=== PATIENT | male | born 1955 | race Caucasian/White ===

== ENCOUNTER → 2016-03-30 | Outpatient (CLI) | payer BC ==
[~2016-03-30] MED LIST: /PANT40TA PO; ACET50TA PO; ALLO300T2 PO; CARA1TAB2 PO; CONRAY-43 43% 50ML VIAL (Q9960) As Ordered ONE; DOXA2TAB PO; FINA5TAB2 PO; GABA300C2 PO; ICAPCAP PO; LYRI75CA PO; MELO15TA3 PO; Magnesium; OLIV500C PO; ONE A DAY MENS PO; PERCOCET PO; PRAV40TA2 PO; REGL10TA6 PO; UNIS25TA2 PO; VITA500019 PO; [UNRECOGNIZED DRUG - CODE] PO; diltiazem PO
--- NOTE | 2016-03-30 09:40 | REP ---
MR arthrography right shoulder: with pre and post intra-articular gadolinium enhanced saline injected imaging: History: Right shoulder pain. History of surgery in 2011. History of injury in 2010. Limited range of motion. No comparison radiographs. Technique: The injection procedure is performed and dictated separately. Pre and post intra-articular gadolinium enhanced saline injected imaging is acquired. Imaging planes include axial, oblique coronal, oblique sagittal and ABER projection images. T1 T2-weighted scans are included with and without fat saturation. MRI findings: Pre injection MR imaging shows normal alignment of the glenohumeral and acromioclavicular joints. There is some subcortical cyst formation in the superolateral humeral head. There is inferolateral spurring of the acromion process. The distal clavicle has been resected and the acromioclavicular joint is postoperatively widened but normally aligned. There is magnetic field susceptibility artifact adjacent to the acromion process. There is a small pre injection joint effusion. There is diffuse swelling and increased signal intensity in the supraspinatus tendon on oblique coronal pre injection T1-weighted scans consistent with tendonitis tendinosis change. A small sliver of subacromial subdeltoid bursal fluid is seen. Post injection MR imaging shows good filling and enhancement of the right glenohumeral articulation. No loose body is appreciated. There is no evidence of rotator cuff tear on post injection T1-weighted oblique coronal scans. The superior labrum is very small and appears to have been resected. No anterior or posterior labral disruption is appreciated. No periarticular cyst or mass is observed. Biceps tendon is not well seen and appears to be attenuated. No infraspinatus or subscapularis disruption is seen. Impression: Postoperative changes at the AC joint, acromion process, and supraspinatus tendon. The superior labral cartilage appears to have been resected. There is early osteoarthritic spurring at the inferior margin of the glenoid. Tendonitis tendinosis changes are seen in the supraspinatus tendon. Biceps tendon is attenuated and not well seen. Signed by Jose Cruz Tineo MD 03/30/2016 10:19 A
--- NOTE | 2016-03-30 17:21 | REP ---
Procedure: Right shoulder arthrogram The procedure was performed under the direct supervision of Dr. Tineo. History: Right shoulder pain The benefits and risks including but not limited to pain, infection, bleeding and anaphylaxis were explained to the patient and informed consent was obtained. Technique: The right glenohumeral joint space was localized using fluoroscopic guidance. The skin was prepped and draped in a sterile fashion. 1% lidocaine was used as a local anesthetic. Using fluoroscopic guidance a 22 gauge spinal needle was inserted and advanced into the joint. 0.5 ml of Conray 43 was injected to verify placement. 11 ml of a solution containing 20 ml of sterile saline and 0.15 ml of ProHance was injected into the joint. The needle was removed and the patient was taken to MRI for postprocedural imaging. The the patient tolerated the procedure well and there were no immediate complications. 1 second of of fluoro time was utilized for this procedure. Reviewed by GALE Cisse 03/30/2016 01:45 PSigned by Jose Cruz Tineo MD 03/30/2016 05:12 P
== END ==
LOC: M RADPRO 07:19
PROVIDERS: ATTEND Orthopaedic Surgery
DX: M65.811 Other synovitis and tenosynovitis, right shoulder (principal); M19.011 Primary osteoarthritis, right shoulder; M75.81 Other shoulder lesions, right shoulder; Z98.890 Other specified postprocedural states
CPT/HCPCS: 23350; 73223; 77002; A9576; Q9960

== ENCOUNTER 2018-05-17 05:55 | Day surgery (SDC) | payer OTHER ==
[~2018-05-17] VITALS: Ht 193 cm; Wt 125.2 kg
[~2018-05-17 05:55] MED LIST changes: +ALLO10TA PO; +ASPI81CH32 PO; +CELE1CAP4 PO; -CONRAY-43 43% 50ML VIAL (Q9960) As Ordered ONE; +DOXA1TAB41 PO; +HYDR-3713 PO; +OMEP40CA2 PO; +VITA1CAP2 PO
[2018-05-17] MEDS ORDERED: ceFAZolin 2 GM/D5W 50 ML IV BAG (J0690 PER 500MG) As Ordered ONE (06:33)
[2018-05-17] MEDS ORDERED: MIDAZOLAM INJ 2 MG/2 ML VIAL (J2250) As Ordered ONE ×2 (06:40→07:08)
[2018-05-17] MEDS ORDERED: fentaNYL 100 MCG/2 ML INJECTION (J3010) As Ordered ONE ×3 (06:40→11:44)
[2018-05-17] MEDS ORDERED: LIDOCAINE 2% INJ 100 MG/5 ML SDV (FOR ANES.) As Ordered ONE (07:06)
[2018-05-17] MEDS ORDERED: ONDANSETRON 4MG/2ML VIAL (J2405) As Ordered ONE ×2 (07:06→11:44)
[2018-05-17] MEDS ORDERED: dexameTHASONE 4 MG/ML 1ML VIAL (J1100) As Ordered ONE (07:06)
[2018-05-17] MEDS ORDERED: PROPOFOL 200 MG/20 ML VIAL As Ordered ONE (07:06)
[2018-05-17] MEDS ORDERED: ROCURONIUM BROMIDE 50 MG/5 ML VIAL As Ordered ONE ×2 (07:53→08:01)
[2018-05-17] MEDS ORDERED: HYDROmorphone HCL 2 MG/ML 1ML VIAL (J1170) As Ordered ONE (08:00)
[2018-05-17] MEDS ORDERED: ePHEDrine SULFATE 25 MG/5 ML(5MG/ML) SYRINGE As Ordered ONE (08:32)
[2018-05-17] MEDS ORDERED: SUGAMMADEX SODIUM 500 MG/5 ML VIAL (BRIDION) As Ordered ONE (08:50)
[2018-05-17] MEDS ORDERED: ACETAMINOPHEN 1000MG 100ML IV BTL (OFIRMEV) (J0131 PER 10MG) As Ordered ONE (10:16)
[2018-05-17] MEDS ORDERED: BUPIVACAINE HCL 0.25% 30 ML VIAL As Ordered ONE (10:37)
[2018-05-17] MEDS ORDERED: oxyCODONE 5MG TAB As Ordered ONE (11:44)
[2018-05-17] MEDS ORDERED: METOCLOPRAMIDE INJ 10MG/2ML VIAL (J2765) IV PRN (11:45)
[2018-05-17] MEDS ORDERED: LR 1,000 ML IV SCH ×2 (11:45→12:00)
[2018-05-17] MEDS ORDERED: ONDANSETRON 4MG/2ML VIAL (J2405) IV PRN (11:45)
[2018-05-17] MEDS ORDERED: PERCOCET 5MG/325MG TAB PO PRN (11:45)
[2018-05-17] MEDS: fentaNYL 100 MCG/2 ML INJECTION (J3010) IV PRN ×4 (11:53→12:15)
[2018-05-17] MEDS ORDERED: oxyCODONE 5MG TAB PO PRN ×2 (12:15)
--- NOTE | 2018-05-17 12:36 | REP ---
LEFT FOOT, THREE VIEWS: HISTORY: Postop. A plaster cast is present obscuring detail. The patient is status post arthrodesis of the talonavicular joint space. Metal hardware is present. There is no acute fracture or dislocation. The patient is status post arthrodesis of the talonavicular joint space. There is anatomic alignment. Electronically Signed by Gareth Zhang MD 05/17/2018 12:37 P
--- NOTE | 2018-05-17 12:39 | REP ---
LEFT ANKLE, THREE VIEWS: HISTORY: Postop. A plaster cast is present obscuring detail. The patient is status post arthrodesis of the talonavicular joint space. Metal hardware is present. There is no acute fracture or dislocation. The joint space is normal in appearance. IMPRESSION: The patient is status post arthrodesis of the talonavicular joint space. There is anatomic alignment. Electronically Signed by Gareth Zhang MD 05/17/2018 12:41 P
--- NOTE | 2018-05-17 15:00 | REP ---
FLUOROSCOPIC GUIDANCE FOR ANKLE SURGERY: 05/17/2018. Clinical history: Ankle arthritis. Findings: A series of images from C-arm fluoroscopy provided to Dr. Castro of the orthopedic division is reviewed. Talar osteotomy and screws in the anterior process of the talus are present. Images from graft harvest from the proximal tibia region are also presented. Fluoroscopy time: 1 minute 47 seconds. Electronically Signed by Hector Kohler MD 05/17/2018 08:46 P
[2018-05-17] MEDS ORDERED: oxyCODONE 5MG TAB PO ONE (15:30)
[2018-05-17 16:15] VITALS: BP 122/63
--- NOTE | 2018-05-21 09:34 | RO ---
DATE OF PROCEDURE: 05/17/2018 PREPROCEDURE DIAGNOSIS: Left talonavicular osteoarthritis. POSTPROCEDURE DIAGNOSIS: Left talonavicular osteoarthritis. PROCEDURE: Left talonavicular arthrodesis and proximal tibial bone graft. SURGEON: Elizabeth Castro MD NURSE EMERGENCY: RONY Daly ANESTHESIA: General endotracheal anesthesia. ESTIMATED BLOOD LOSS: 5 mL. COMPLICATIONS: None. CONDITION: Stable to recovery. IMPLANTS: Two Synthes 4.0 mm screws with associated washer along with a SB Titan staple and DBX putty. INDICATIONS: Josafat Valdez is a 62-year-old male with longstanding pain in the region of his talonavicular joint. Risks and benefits of talonavicular arthrodesis were discussed with the patient in detail. Patient elected for surgical management. Risks include, but are not limited to infection, damage to nerves and blood vessels, need for additional procedures, nonunion or malunion, continued pain and stiffness. Informed consent was obtained in the office. DESCRIPTION OF PROCEDURE: The patient was met in the preoperative holding area where his left lower extremity was marked as the correct operative site. He was taken to the operating room and placed in the supine position on the operating room table. His bony prominences were well padded. A bump was placed under the ipsilateral hip. A well padded tourniquet was placed on the left upper thigh. Left lower extremity was prepped and draped in the normal sterile fashion. An official time-out was held where the correct patient, operative site and operative procedure were verified. The leg was exsanguinated and tourniquet was inflated to 250 mmHg. An incision was made over the medial aspect of the foot about midway between the posterior tibial tendon and tibialis anterior tendon. Crossing vessels were coagulated. The capsule of the talonavicular joint was identified and incised. The joint was identified and confirmed on fluoroscopic radiographs. Next, a Krystyna retractor was used to gain access to the joint. There was found to be essentially no cartilage left on the talar side of the joint. There was sclerotic bone. There was a small amount of cartilage left on the navicular side of the joint. Any remaining cartilage was removed using a combination of curettes and Lambotte osteotomes. Following the removal of cartilage, a 0.062 K-wire was used to perforate holes with the subchondral bone on both sides of the joint. A small Dipak osteotome was then used to further perforate the joint. When I was satisfied with the joint preparation, attention was turned to the lateral knee for bone graft. X-rays were performed to confirm location and Gerdy's tubercle. A small incision was made longitudinally directly over the tubercle. The anterior compartment was elevated. A small 1 x 1 x 1 rectangular window was made in Gerdy's tubercle. Bone graft was obtained using a medium sized curette. The window was replaced and the anterior fascia was closed with #0 Vicryl. The wound was irrigated and subcutaneous tissues were closed using #3-0 Vicryl and skin was closed using #3-0 nylon in horizontal mattress fashion. The bone graft was taken and in combination mixed with DBX putty. Next, attention was turned back to the talonavicular joint. There was a small osteophyte present on the dorsal aspect of the joint and this was removed. There was quite a large osteophyte that was on the very far lateral aspect of joint that was not easily accessed through the incision. It would have required a separate lateral incision in the region of the neurovascular bundle. Patient was not having pain in this region prior to surgery so a decision was made to leave the osteophyte alone and prevent any unnecessary incisions. The bone graft and DBX putty were placed into the joint. The joint was then manually compressed and the foot was placed into slight neutral to slight valgus and plantar-grade position. It was pinned in place using two 0.062 K-wires. At this point, a 4.0 mm screw was placed dorsomedially and one in the plantar medial cortex into the body and neck of the talus. After the two screws were placed, there was nice compression about the joint. A staple was then chosen to fix the dorsolateral aspect of the joint and this also gave nice compression. Superficial tissues were closed using #3-0 Vicryl and the skin was closed using #3-0 nylon. A well padded cast was applied with the patient's foot in neutral position. Rosaline Gary was essential in aiding in retraction and hardware placement, and also in obtaining bone graft. She was present for the entirety of the case. Patient was extubated and transferred to the recovery room in stable condition. PLAN: Patient will be nonweightbearing on the right lower extremity for 6 to 8 weeks. He will be on aspirin for deep venous thrombosis (DVT) prophylaxis. I will see him back in two weeks for a wound check.
== END 2018-05-17 16:20 | disposition home or self-care (01) ==
LOC: M SDC 05:55
PROVIDERS: ATTEND Orthopaedic Surgery
DX: M19.072 Primary osteoarthritis, left ankle and foot (principal); K21.9 Gastro-esophageal reflux disease without esophagitis; M10.9 Gout, unspecified; N40.0 Benign prostatic hyperplasia without lower urinary tract symptoms; G47.30 Sleep apnea, unspecified; R07.9 Chest pain, unspecified; Z79.82 Long term (current) use of aspirin; Z79.899 Other long term (current) drug therapy
CPT/HCPCS: 20902; 28740; 73610; 73630; 76000; 97116; C1713; C1762; J0131; J0690; J1100; J1170; J2250; J2405; J3010

== ENCOUNTER → 2018-09-13 | Outpatient (CLI) | payer BC ==
[~2018-09-13] MED LIST changes: -/PANT40TA PO; -ACET50TA PO; -ASPI81CH32 PO; +ASPI81CH33 PO; +MAPA500T17 PO; +OXYC1TAB23 PO; -PERCOCET PO; +PROT1TAB2 PO; +VITA-183 PO; -VITA1CAP2 PO
--- NOTE | 2018-09-13 16:45 | REP ---
Maxillofacial CT study without contrast: History: Chronic rhinitis. No comparison imaging. CT findings: There are small mucous retention cysts less than a centimeter in diameter in the inferior aspect of each maxillary sinus. The maxillary sinuses are otherwise clear. Ethmoid aeration is normal and symmetric. Frontal sinuses are clear. Sphenoid air cells show no evidence of sinusitis. Mastoid aeration is normal and symmetric. The mid bony septum deviates somewhat to the left without a discernible beak. Nasal turbinate soft tissues are unremarkable and symmetric. No nasal polyp is appreciated. The ostiomeatal complexes are patent bilaterally as are nasal ethmoid recesses. No intraorbital abnormality is seen. Deep facial and visualized intracranial soft tissues are unremarkable. Impression: Small mucous retention cysts in the maxillary sinuses bilaterally. Otherwise negative. Electronically Signed by Jose Cruz Tineo MD 09/13/2018 04:59 P
== END ==
LOC: M RAD 15:21
PROVIDERS: ATTEND Physician Assistant Medical
DX: J31.0 Chronic rhinitis (principal); J34.1 Cyst and mucocele of nose and nasal sinus

== ENCOUNTER → 2019-08-13 | Outpatient (CLI) | payer BC ==
[~2019-08-13] MED LIST changes: -OMEP40CA2 PO; +OMEP40CA97 PO; +PRED10TA2 PO
== END ==
LOC: M LABSMTC 09:29
PROVIDERS: ATTEND Anesthesiology
DX: Z03.818 Encounter for observation for suspected exposure to other biological agents ruled out (principal); Z11.59 Encounter for screening for other viral diseases
CPT/HCPCS: C9803; U0003

== ENCOUNTER 2019-08-16 10:25 | Day surgery (SDC) | payer BC ==
[~2019-08-16] VITALS: Ht 188 cm; Wt 125.6 kg
[~2019-08-16 10:25] MED LIST changes: +NS 1,000 ML IV ONE
--- NOTE | 2019-08-16 11:31 | ROOR ---
Patient Name: Josafat Valdez Procedure Date: 08/16/2019 11:15 AM Date of : 1955 Age: 64 Room: [facility] Gender: Male Note Status: Finalized Procedure: Upper Endoscopy + Biopsies Indications: Heartburn, Exclusion of Albarran's esophagus Providers: Jaswinder Andrade MD Referring MD: Matthew Sanchez MD Requesting Provider: Medicines: Monitored Anesthesia Care Complications: No immediate complications. Procedure: Pre-Anesthesia Assessment: - The heart rate, respiratory rate, oxygen saturations, blood pressure, adequacy of pulmonary ventilation, and response to care were monitored throughout the procedure. The Endoscope was introduced through the mouth, and advanced to the second part of duodenum. The upper GI endoscopy was accomplished without difficulty. The patient tolerated the procedure well. Findings: The Z-line was regular and was found 40 cm from the incisors. Multiple biopsies were obtained with cold forceps for evaluation to rule out Albarran's Esophagus randomly at the gastroesophageal junction. A small hiatal hernia was present. Evidence of a gastric bypass was found. A gastric pouch with a small size was found. The staple line appeared intact. The gastrojejunal anastomosis was characterized by healthy appearing mucosa. This was traversed. The [id number] limb was characterized by healthy appearing mucosa. Diffuse, white plaques were found in the entire esophagus. Biopsies were taken with a cold forceps for histology. The exam was otherwise without abnormality. Impression: - Z-line regular, 40 cm from the incisors. - Small hiatal hernia. - Gastric bypass with a small-sized pouch and intact staple line. Gastrojejunal anastomosis characterized by healthy appearing mucosa. - Esophageal plaques were found, suspicious for candidiasis. Biopsied. - The examination was otherwise normal. - Multiple biopsies were obtained at the gastroesophageal junction. - The examination was otherwise normal. Recommendation: - Await pathology results. - Discharge patient to home. - Continue present medications. - Await pathology results. - Telephone GI clinic for pathology results in 1 week. - Diflucan (fluconazole) 100 mg PO daily for 9 days. - The findings and recommendations were discussed with the patient. Jaswinder Andrade MD Jaswinder Andrade MD 08/16/2019 11:30:54 AM Electronically signed by Jaswinder Andrade MD Number of Addenda: 0 Note Initiated On: 08/16/2019 11:15 AM Estimated Blood Loss: Estimated blood loss: none.
--- NOTE | 2019-08-16 11:50 | ROOR ---
Patient Name: Josafat Valdez Procedure Date: 08/16/2019 11:16 AM Date of : 1955 Age: 64 Room: [facility] Gender: Male Note Status: Finalized Procedure: Total Colonoscopy to Cecum Indications: High risk colon cancer surveillance: Personal history of colonic polyps, Last colonoscopy 3 years ago Providers: Jaswinder Andrade MD Referring MD: Matthew Sanchez MD Requesting Provider: Medicines: Monitored Anesthesia Care Complications: No immediate complications. Procedure: Pre-Anesthesia Assessment: - The heart rate, respiratory rate, oxygen saturations, blood pressure, adequacy of pulmonary ventilation, and response to care were monitored throughout the procedure. The Colonoscope was introduced through the anus and advanced to the cecum, identified by appendiceal orifice and ileocecal valve. The colonoscopy was performed without difficulty. The patient tolerated the procedure well. The quality of the bowel preparation was good. Findings: The perianal and digital rectal examinations were normal. Non-bleeding internal hemorrhoids were found during retroflexion. The hemorrhoids were small and Grade I (internal hemorrhoids that do not prolapse). Scattered small-mouthed diverticula were found in the recto-sigmoid colon, sigmoid colon and descending colon. The exam was otherwise without abnormality on direct and retroflexion views. Impression: - Non-bleeding internal hemorrhoids. - Diverticulosis in the recto-sigmoid colon, in the sigmoid colon and in the descending colon. - The examination was otherwise normal on direct and retroflexion views. - No specimens collected. - The exam was otherwise normal to the cecum. Recommendation: - Patient has a contact number available for emergencies. The signs and symptoms of potential delayed complications were discussed with the patient. Return to normal activities tomorrow. Written discharge instructions were provided to the patient. - High fiber diet. - Continue present medications. - Repeat colonoscopy in 5 years for surveillance. - Return to referring physician. - The findings and recommendations were discussed with the patient's family. Jaswinder Andrade MD Jaswinder Andrade MD 08/16/2019 11:50:15 AM Electronically signed by Jaswinder Andrade MD Number of Addenda: 0 Note Initiated On: 08/16/2019 11:16 AM Estimated Blood Loss: Estimated blood loss: none.
[2019-08-16] MEDS ORDERED: propofoL 200 MG/20 ML VIAL As Ordered ONE (12:04)
[2019-08-16 12:20] VITALS: BP 172/101
[2019-08-16 12:45] VITALS: BP 172/101
== END 2019-08-16 12:49 | disposition home or self-care (01) ==
LOC: M OPP 10:25
PROVIDERS: ATTEND Internal Medicine Gastroenterology
DX: Z12.11 Encounter for screening for malignant neoplasm of colon (principal); Z86.010 Personal history of colon polyps; K64.0 First degree hemorrhoids; K57.30 Diverticulosis of large intestine without perforation or abscess without bleeding; K44.9 Diaphragmatic hernia without obstruction or gangrene; Z98.84 Bariatric surgery status; K22.9 Disease of esophagus, unspecified; R12 Heartburn; Z79.82 Long term (current) use of aspirin; Z79.899 Other long term (current) drug therapy

== ENCOUNTER → 2023-05-13 | Outpatient (CLI) | payer MEDICARE, BC ==
[~2023-05-13] MED LIST changes: -NS 1,000 ML IV ONE; +OMEP40CA4 PO; -OMEP40CA97 PO
[2023-05-13 15:01] LABS: THYROID STIMULATING HORMONE 2.688 uIU/ML (0.55-4.78); THYROXINE (T4) 9.8 UG/DL (4.5-10.9)
[2023-05-13 15:02] LABS: FREE THYROXINE INDEX 3.6 % (1.4-3.8); T UPTAKE 36.3 % (22.5-37.0); VITAMIN B12 LEVEL 711 PG/ML (211-911)
[2023-05-13 15:05] LABS: FOLATE > 24.0 NG/ML (>5.4)
[2023-05-19 10:09] LABS: IMMUNOTYPING SERUM IGA SO 121 mg/dL (61-437); IMMUNOTYPING SERUM IGM SO 41 mg/dL (20-172); IgG P18 AB Absent (.); IgG P23 AB Absent (.); IgG P28 AB Absent (.); IgG P30 AB Absent (.); IgG P39 AB Absent (.); IgG P41 AB Absent (.); IgG P45 AB Absent (.); IgG P66 AB Absent (.); IgG P93 AB Absent (.); IgM P23 AB Absent (.); IgM P39 AB Absent (.); IgM P41 AB Absent (.); LYME IgG WB INTERPRETATION Negative (.); LYME IgM WB INTERPRETATION Negative (.); SSA SJOGRENS A <0.2 AI (0.0-0.9); SSB SJOGRENS B <0.2 AI (0.0-0.9); VITAMIN B1 LEVEL WHOLE BLOOD 291.4 nmol/L (66.5-200.0); VITAMIN B6,PYRIDOXAL PHOSPHATE 28.8 ug/L (3.4-65.2); VITAMIN E(ALPHA TOCOPHEROL) 10.8 mg/L (9.0-29.0); VITAMIN E(GAMMA TOCOPHEROL) 0.4 mg/L (0.5-4.9)
== END ==
LOC: M PLALAB 10:04
PROVIDERS: ATTEND Psychiatry & Neurology Neurology
DX: E53.8 Deficiency of other specified B group vitamins (principal); G62.9 Polyneuropathy, unspecified; E07.9 Disorder of thyroid, unspecified; M35.00 Sjogren syndrome, unspecified

== ENCOUNTER → 2023-09-22 | Outpatient (REF) | payer MEDICARE, BC | LOC: M SFHCDERM 17:11 | PROVIDERS: ATTEND Dermatology | DX: L94.0 Localized scleroderma [morphea] (principal) ==

== ENCOUNTER 2023-12-22 17:58 | Emergency (ER) | payer OTHER, MEDICARE, BC ==
[~2023-12-22] VITALS: Ht 188 cm; Wt 143.3 kg
[2023-12-22] MEDS ORDERED: ASPI81TA26 (18:08)
[2023-12-22] MEDS ORDERED: OXYC-517 (18:08)
[2023-12-22] MEDS ORDERED: CEPH500C (18:08)
[2023-12-22] MEDS: MORPHINE 4 MG/ML 1ML VIAL IV PRN (19:27)
[2023-12-22] MEDS: NS 1,000 ML IV SCH (19:27)
[2023-12-22] MEDS: MORPHINE 4 MG/ML 1ML VIAL IV ONE (22:11)
[2023-12-22] MEDS: propofoL 200 MG/20 ML VIAL IV.PROC PRN (22:19)
[2023-12-22 23:45] VITALS: BP 125/59; TEMP 98.5
[2023-12-23 00:20] VITALS: O2SAT 97
[2023-12-23] MEDS: ANEXSIA, NORCO 7.5MG/325MG TABLET(HYDROCODONE/APAP) PO ONE (00:20)
== END 2023-12-23 00:20 | disposition home or self-care (01) ==
LOC: EDBD 17:58 → M ED 17:58
DX: T84.020A Dislocation of internal right hip prosthesis, initial encounter (principal); W19.XXXA Unspecified fall, initial encounter; I10 Essential (primary) hypertension; K21.9 Gastro-esophageal reflux disease without esophagitis; Z96.641 Presence of right artificial hip joint; Y92.009 Unspecified place in unspecified non-institutional (private) residence as the place of occurrence of the external cause; Y93.89 Activity, other specified; Y99.9 Unspecified external cause status; Z79.82 Long term (current) use of aspirin; Z79.899 Other long term (current) drug therapy; Z79.52 Long term (current) use of systemic steroids

== ENCOUNTER 2024-03-13 08:45 | Day surgery (SDC) | payer OTHER, MEDICARE, BC ==
[~2024-03-13] VITALS: Ht 188 cm; Wt 122.5 kg
[~2024-03-13 08:45] MED LIST changes: +AMIT10TA7 PO; +ASPI81TA26; +CEPH500C; +CETI10CA13 PO; +CIAL5TAB PO; +DILT240C41 PO; +DULO1CAP5 PO; +FERR324T21 PO; +FLUT15.819; +FOLI1TAB11 PO; +HYDR200T46 PO; +LOSA50TA28 PO; +MYRB50TA PO; +OXYC-517; +PANT40TA29 PO; +PREG150C2 PO; +TAMS1CAP17 PO
[2024-03-13] MEDS ORDERED: fentaNYL 100 MCG/2 ML INJECTION As Ordered ONE (09:41)
[2024-03-13] MEDS ORDERED: LIDOCAINE 2% 100MG/5ML SDV (FOR ANES.) As Ordered ONE (09:41)
[2024-03-13] MEDS ORDERED: propofoL 200 MG/20 ML VIAL As Ordered ONE (09:45)
[2024-03-13 10:12] VITALS: TEMP 98.6
[2024-03-13 10:36] VITALS: BP 117/71; O2SAT 94
== END 2024-03-13 10:42 | disposition home or self-care (01) ==
LOC: M OPP 08:45
PROVIDERS: ATTEND Internal Medicine Gastroenterology
DX: Z12.11 Encounter for screening for malignant neoplasm of colon (principal); Z86.0100 Personal history of colon polyps, unspecified; K64.0 First degree hemorrhoids; K57.30 Diverticulosis of large intestine without perforation or abscess without bleeding; R12 Heartburn; Z98.84 Bariatric surgery status; Z79.82 Long term (current) use of aspirin; Z79.891 Long term (current) use of opiate analgesic; Z79.899 Other long term (current) drug therapy; G47.30 Sleep apnea, unspecified
CPT/HCPCS: 43239; 88305; G0105; J3010

== ENCOUNTER 2024-09-28 10:55 | Outpatient (CLI) | payer BC, MEDICARE, OTHER ==
[~2024-09-28] VITALS: Ht 188 cm; Wt 124.0 kg
[~2024-09-28 10:55] MED LIST changes: +ALBUTEROL SULFATE 2.5 MG/0.5 ML INH CONCENTRATE NEB SOLN INH PRN; +AMIT10TA11 PO; -AMIT10TA7 PO; +EPINEPHrine INJ 1 MG/ML 1ML AMP IM PRN; +PRAV40TA85 PO; +diphenhydrAMINE 50 MG/ML VIAL IV PRN
[2024-09-28] MEDS: IMMUNE GLOBULIN 10% 40 GM in IV 1 EA IV ONE ×2 (11:00→12:45)
[2024-09-28] MEDS: ACETAMINOPHEN 650MG PO PRIOR TO INFUSION PO ONE (11:36)
[2024-09-28] MEDS: diphenhydrAMINE 25MG IV PRIOR TO INFUSION IV ONE (11:36)
[2024-09-28] MEDS: NS (Normal Saline) 0.9% 1,000 ML IV SCH (11:37)
[2024-09-28 11:49] VITALS: BP 108/69; O2SAT 96
[2024-09-28 13:25] VITALS: BP 104/60; O2SAT 96
[2024-09-28 13:50] VITALS: BP 112/70; O2SAT 96
[2024-09-28 14:20] VITALS: BP 95/58; O2SAT 95
[2024-09-28 16:44] VITALS: BP 113/70; O2SAT 94
== END 2024-09-28 16:50 ==
LOC: M INFU 10:55
PROVIDERS: ATTEND Student in an Organized Health Care Education/Training Program
DX: G61.81 Chronic inflammatory demyelinating polyneuritis (principal)
CPT/HCPCS: 96365; 96366; 96375; J1200; J1459

== ENCOUNTER 2024-09-29 10:59 | Outpatient (CLI) | payer BC, MEDICARE, OTHER ==
[~2024-09-29] VITALS: Ht 188 cm; Wt 124.0 kg
[2024-09-29 11:15] VITALS: BP 128/65; O2SAT 99
[2024-09-29] MEDS: diphenhydrAMINE 25MG IV PRIOR TO INFUSION IV ONE (11:24)
[2024-09-29] MEDS: ACETAMINOPHEN 650MG PO PRIOR TO INFUSION PO ONE (11:24)
[2024-09-29] MEDS: NS (Normal Saline) 0.9% 1,000 ML IV SCH (11:27)
[2024-09-29] MEDS: IMMUNE GLOBULIN 10% 40 GM in IV 1 EA IV ONE ×2 (12:12→12:14)
[2024-09-29 13:00] VITALS: BP 122/68; O2SAT 97
[2024-09-29 13:28] VITALS: BP 117/70; O2SAT 96
[2024-09-29 14:00] VITALS: BP 128/72; O2SAT 98
[2024-09-29 15:00] VITALS: BP 133/68; O2SAT 97
[2024-09-29 16:20] VITALS: BP 113/65; O2SAT 95
== END 2024-09-29 16:20 ==
LOC: M INFU 10:59
PROVIDERS: ATTEND Student in an Organized Health Care Education/Training Program
DX: G61.81 Chronic inflammatory demyelinating polyneuritis (principal)
CPT/HCPCS: 96365; 96366; 96375; J1200; J1459

== ENCOUNTER → 2024-10-26 | Outpatient (CLI) | payer BC, MEDICARE, OTHER ==
[~2024-10-26] VITALS: Ht 188 cm; Wt 111.4 kg
[~2024-10-26] MED LIST changes: +NS (Normal Saline) 0.9% 1,000 ML IV SCH
[2024-10-26] MEDS: ACETAMINOPHEN 650 MG PO ONE (11:05)
[2024-10-26] MEDS: diphenhydrAMINE 50 MG/ML VIAL IV ONE (11:05)
[2024-10-26 11:20] VITALS: BP 99/67; O2SAT 94
[2024-10-26] MEDS: NS (Normal Saline) 0.9% 1,000 ML IV ONE (11:20)
[2024-10-26] MEDS: IMMUNE GLOBULIN 10% 80 GM in IV 1 EA IV ONE (12:16)
[2024-10-26 12:45] VITALS: BP 109/67; O2SAT 95
[2024-10-26 13:15] VITALS: BP 110/68; O2SAT 93
[2024-10-26 13:45] VITALS: BP 105/58; O2SAT 94
[2024-10-26 14:45] VITALS: BP 121/69; O2SAT 98
[2024-10-26 16:25] VITALS: BP 120/68; O2SAT 95
== END ==
LOC: M INFU 16:49
PROVIDERS: ATTEND Student in an Organized Health Care Education/Training Program
DX: G61.81 Chronic inflammatory demyelinating polyneuritis (principal)
CPT/HCPCS: 96361; 96365; 96366; 96375; J1200; J1459

== ENCOUNTER 2024-10-27 11:01 | Outpatient (CLI) | payer OTHER, MEDICARE, BC ==
[~2024-10-27] VITALS: Ht 188 cm; Wt 111.4 kg
[~2024-10-27 11:01] MED LIST changes: -NS (Normal Saline) 0.9% 1,000 ML IV SCH
[2024-10-27 11:10] VITALS: BP 114/72; O2SAT 95
[2024-10-27] MEDS: ACETAMINOPHEN 650 MG PO ONE (11:12)
[2024-10-27] MEDS: diphenhydrAMINE 50 MG/ML VIAL IV ONE (11:12)
[2024-10-27] MEDS: NS (Normal Saline) 0.9% 1,000 ML IV ONE (11:12)
[2024-10-27] MEDS: IMMUNE GLOBULIN 10% 80 GM in IV 1 EA IV ONE (12:02)
[2024-10-27 12:30] VITALS: BP 107/62; O2SAT 97
== END 2024-10-27 16:10 | disposition home or self-care (01) ==
LOC: M INFU 11:01
PROVIDERS: ATTEND Student in an Organized Health Care Education/Training Program
DX: G61.81 Chronic inflammatory demyelinating polyneuritis (principal)
CPT/HCPCS: 96361; 96365; 96366; 96375; J1200; J1459

== ENCOUNTER 2024-11-23 09:17 | Outpatient (CLI) | payer OTHER, MEDICARE, BC ==
[~2024-11-23] VITALS: Ht 188 cm; Wt 109.1 kg
[2024-11-23 09:50] VITALS: BP 115/65; O2SAT 96
[2024-11-23] MEDS: diphenhydrAMINE 50 MG/ML VIAL IV ONE (10:09)
[2024-11-23] MEDS: ACETAMINOPHEN 650 MG PO ONE (10:09)
[2024-11-23] MEDS: NS (Normal Saline) 0.9% 1,000 ML IV SCH (10:09)
[2024-11-23] MEDS: IMMUNE GLOBULIN 10% 40 GM in IV 1 EA IV ONE ×2 (10:52→10:53)
[2024-11-23 12:00] VITALS: BP 137/86; O2SAT 95
[2024-11-23 15:43] VITALS: BP 116/77; O2SAT 95
== END 2024-11-23 15:44 | disposition home or self-care (01) ==
LOC: M INFU 09:17
PROVIDERS: ATTEND Student in an Organized Health Care Education/Training Program
DX: G61.81 Chronic inflammatory demyelinating polyneuritis (principal)
CPT/HCPCS: 96365; 96366; 96375; J1200; J1459

== ENCOUNTER 2024-11-24 10:15 | Outpatient (CLI) | payer BC, MEDICARE, OTHER ==
[~2024-11-24] VITALS: Ht 188 cm; Wt 109.0 kg
[2024-11-24 10:20] VITALS: BP 118/75; O2SAT 100
[2024-11-24] MEDS: NS (Normal Saline) 0.9% 1,000 ML IV SCH (10:30)
[2024-11-24] MEDS: diphenhydrAMINE 25MG IV PRIOR TO INFUSION IV ONE (10:41)
[2024-11-24] MEDS: ACETAMINOPHEN 650MG PO PRIOR TO INFUSION PO ONE (10:42)
[2024-11-24] MEDS: IMMUNE GLOBULIN 10% 40 GM in IV 1 EA IV ONE ×2 (11:26→11:27)
[2024-11-24 12:15] VITALS: BP 128/82; O2SAT 98
[2024-11-24 12:45] VITALS: BP 126/84; O2SAT 100
[2024-11-24 13:15] VITALS: BP 120/76; O2SAT 98
[2024-11-24 14:15] VITALS: BP 121/79; O2SAT 97
[2024-11-24 16:03] VITALS: BP 133/87; O2SAT 95
== END 2024-11-24 16:05 | disposition home or self-care (01) ==
LOC: M INFU 10:15
PROVIDERS: ATTEND Student in an Organized Health Care Education/Training Program
DX: G61.81 Chronic inflammatory demyelinating polyneuritis (principal)
CPT/HCPCS: 96365; 96366; 96375; J1200; J1459

== ENCOUNTER 2024-12-28 09:31 | Outpatient (CLI) | payer OTHER, MEDICARE, BC ==
[~2024-12-28] VITALS: Ht 188 cm; Wt 105.0 kg
[2024-12-28 09:25] VITALS: BP 124/66; O2SAT 93
[2024-12-28] MEDS: NS (Normal Saline) 0.9% 1,000 ML IV SCH (09:45)
[2024-12-28] MEDS: ACETAMINOPHEN 325 MG TAB PO ONE (10:51)
[2024-12-28] MEDS: diphenhydrAMINE 50 MG/ML VIAL IV ONE (10:51)
[2024-12-28] MEDS: IMMUNE GLOBULIN 10% 40 GM in IV 1 EA IV ONE ×2 (10:57→10:58)
[2024-12-28 11:30] VITALS: BP 118/71; O2SAT 94
[2024-12-28 13:00] VITALS: BP 112/68; O2SAT 95
[2024-12-28 15:40] VITALS: BP 114/69; O2SAT 94
== END 2024-12-28 15:40 | disposition home or self-care (01) ==
LOC: M INFU 09:31
PROVIDERS: ATTEND Student in an Organized Health Care Education/Training Program
DX: G61.81 Chronic inflammatory demyelinating polyneuritis (principal)
CPT/HCPCS: 96365; 96366; 96375; J1200; J1459

== ENCOUNTER 2024-12-29 10:00 | Outpatient (CLI) | payer BC, MEDICARE, OTHER ==
[~2024-12-29] VITALS: Ht 188 cm; Wt 105.0 kg
[2024-12-29 10:05] VITALS: BP 114/72; O2SAT 97
[2024-12-29] MEDS: NS (Normal Saline) 0.9% 1,000 ML IV SCH (10:20)
[2024-12-29] MEDS: IMMUNE GLOBULIN 10% 40 GM in IV 1 EA IV ONE ×2 (11:00→11:01)
[2024-12-29 11:30] VITALS: BP 110/72; O2SAT 96
[2024-12-29 12:00] VITALS: BP 110/69; O2SAT 97
[2024-12-29 12:30] VITALS: BP 119/70; O2SAT 97
[2024-12-29 13:30] VITALS: BP 120/76; O2SAT 98
[2024-12-29 15:30] VITALS: BP 122/76; O2SAT 96
== END 2024-12-29 15:30 | disposition home or self-care (01) ==
LOC: M INFU 10:00
PROVIDERS: ATTEND Student in an Organized Health Care Education/Training Program
DX: G61.81 Chronic inflammatory demyelinating polyneuritis (principal)
CPT/HCPCS: 96365; 96366; J1459

== ENCOUNTER 2025-01-25 09:55 | Outpatient (CLI) | payer BC, MEDICARE, OTHER ==
[~2025-01-25] VITALS: Ht 188 cm; Wt 100.5 kg
[2025-01-25] MEDS ORDERED: NS (Normal Saline) 0.9% 1,000 ML IV SCH (10:00)
[2025-01-25 10:05] VITALS: BP 110/58; O2SAT 97
[2025-01-25] MEDS: NS (Normal Saline) 0.9% 1,000 ML IV ONE (10:15)
[2025-01-25] MEDS: ACETAMINOPHEN 325 MG TAB PO ONE (10:21)
[2025-01-25] MEDS: diphenhydrAMINE 50 MG/ML VIAL IV ONE (10:21)
[2025-01-25] MEDS: IMMUNE GLOBULIN 10% 40 GM in IV 1 EA IV ONE ×2 (10:24→10:25)
[2025-01-25 11:15] VITALS: BP 96/58; O2SAT 97
[2025-01-25 11:45] VITALS: BP 100/60; O2SAT 96
[2025-01-25 12:15] VITALS: BP 103/65; O2SAT 98
[2025-01-25 13:15] VITALS: BP 110/69; O2SAT 97
[2025-01-25 15:15] VITALS: BP 140/81; O2SAT 94
== END 2025-01-25 15:15 | disposition home or self-care (01) ==
LOC: M INFU 09:55
PROVIDERS: ATTEND Student in an Organized Health Care Education/Training Program
DX: G61.81 Chronic inflammatory demyelinating polyneuritis (principal)
CPT/HCPCS: 96365; 96366; 96375; J1200; J1459

== ENCOUNTER 2025-01-26 09:54 | Outpatient (CLI) | payer OTHER, MEDICARE, BC ==
[~2025-01-26] VITALS: Ht 188 cm; Wt 100.0 kg
[~2025-01-26 09:54] MED LIST changes: +NS (Normal Saline) 0.9% 1,000 ML IV SCH
[2025-01-26 10:05] VITALS: BP 120/78; O2SAT 97
[2025-01-26] MEDS: diphenhydrAMINE 50 MG/ML VIAL IV ONE (10:11)
[2025-01-26] MEDS: ACETAMINOPHEN 325 MG TAB PO ONE (10:11)
[2025-01-26] MEDS: NS (Normal Saline) 0.9% 1,000 ML IV ONE (10:12)
[2025-01-26] MEDS: IMMUNE GLOBULIN 10% 40 GM in IV 1 EA IV ONE ×2 (10:53→10:55)
[2025-01-26 11:30] VITALS: BP 111/67; O2SAT 96
[2025-01-26 12:00] VITALS: BP 117/77; O2SAT 97
[2025-01-26 12:30] VITALS: BP 119/71; O2SAT 96
[2025-01-26 15:35] VITALS: BP 121/84; O2SAT 94
== END 2025-01-26 15:35 | disposition home or self-care (01) ==
LOC: M INFU 09:54
PROVIDERS: ATTEND Student in an Organized Health Care Education/Training Program
DX: G61.81 Chronic inflammatory demyelinating polyneuritis (principal)
CPT/HCPCS: 96361; 96365; 96366; 96375; J1200; J1459

== ENCOUNTER 2025-02-22 09:53 | Outpatient (CLI) | payer BC, MEDICARE, OTHER ==
[~2025-02-22] VITALS: Ht 188 cm; Wt 100.5 kg
[2025-02-22 10:00] VITALS: BP 110/80; O2SAT 97
[2025-02-22] MEDS: ACETAMINOPHEN 650MG PO PRIOR TO INFUSION PO ONE (10:36)
[2025-02-22] MEDS: diphenhydrAMINE 25MG IV PRIOR TO INFUSION IV ONE (10:36)
[2025-02-22 10:40] VITALS: BP 114/58; O2SAT 96
[2025-02-22] MEDS: IMMUNE GLOBULIN 10% 40 GM in IV 1 EA IV ONE ×2 (11:14→11:15)
[2025-02-22 11:45] VITALS: BP 109/66; O2SAT 96
[2025-02-22 12:15] VITALS: BP 119/69; O2SAT 96
== END 2025-02-22 16:15 | disposition home or self-care (01) ==
LOC: M INFU 09:53
PROVIDERS: ATTEND Student in an Organized Health Care Education/Training Program
DX: G61.81 Chronic inflammatory demyelinating polyneuritis (principal)
CPT/HCPCS: 96365; 96366; 96375; J1200; J1459

== ENCOUNTER 2025-02-23 10:08 | Outpatient (CLI) | payer BC, MEDICARE, OTHER ==
[~2025-02-23] VITALS: Ht 188 cm; Wt 100.9 kg
[~2025-02-23 10:08] MED LIST changes: +ACETAMINOPHEN 650MG PO PRIOR TO INFUSION PO ONE; +IMMUNE GLOBULIN 10% 40 GM in IV 1 EA IV ONE; -NS (Normal Saline) 0.9% 1,000 ML IV SCH; +diphenhydrAMINE 25MG IV PRIOR TO INFUSION IV ONE
[2025-02-23 10:10] VITALS: BP 116/67; O2SAT 96
[2025-02-23] MEDS: NS (Normal Saline) 0.9% 1,000 ML IV SCH (10:15)
[2025-02-23] MEDS: diphenhydrAMINE 25MG IV PRIOR TO INFUSION IV ONE (10:27)
[2025-02-23] MEDS: ACETAMINOPHEN 650MG PO PRIOR TO INFUSION PO ONE (10:27)
[2025-02-23] MEDS: IMMUNE GLOBULIN 10% 40 GM in IV 1 EA IV ONE (10:48)
[2025-02-23] MEDS ORDERED: IMMUNE GLOBULIN 10% 40 GM in IV 1 EA IV ONE (11:00)
[2025-02-23 11:30] VITALS: BP 103/62; O2SAT 96
[2025-02-23 12:00] VITALS: BP 111/66; O2SAT 97
[2025-02-23 12:30] VITALS: BP 102/66; O2SAT 97
[2025-02-23 13:30] VITALS: BP 119/69; O2SAT 96
[2025-02-23 15:40] VITALS: BP 116/75; O2SAT 98
== END 2025-02-23 15:40 | disposition home or self-care (01) ==
LOC: M INFU 10:08
PROVIDERS: ATTEND Student in an Organized Health Care Education/Training Program
DX: G61.81 Chronic inflammatory demyelinating polyneuritis (principal)
CPT/HCPCS: 96361; 96365; 96366; J1200; J1459